=== PATIENT | male | born 1970 | race Caucasian/White ===

== ENCOUNTER 2019-08-05 11:09 | Emergency (ER) | payer BC ==
[~2019-08-05] VITALS: Ht 170.2 cm; Wt 77.3 kg
[2019-08-05 11:14] VITALS: TEMP 97.5
[2019-08-05 13:14] VITALS: BP 130/71; PULSE 73
== END 2019-08-05 13:16 | disposition home or self-care (01) ==
LOC: COL.ER 11:09
DX: S06.9X9A Unspecified intracranial injury with loss of consciousness of unspecified duration, initial encounter (principal); S80.11XA Contusion of right lower leg, initial encounter; R40.2412 Glasgow coma scale score 13-15, at arrival to emergency department; V43.52XA Car driver injured in collision with other type car in traffic accident, initial encounter; Y92.481 Parking lot as the place of occurrence of the external cause

== ENCOUNTER 2020-01-19 14:00 | Outpatient (RCR) | payer OTHER | END 2020-01-20 | disposition home or self-care (01) | LOC: WSST | DX: S06.0X1D Concussion with loss of consciousness of 30 minutes or less, subsequent encounter (principal) ==

== ENCOUNTER 2020-04-19 16:00 | Outpatient (RCR) | payer OTHER | END 2020-05-09 | disposition home or self-care (01) | LOC: WSST | DX: R41.3 Other amnesia (principal); S06.0X1D Concussion with loss of consciousness of 30 minutes or less, subsequent encounter; X58.XXXD Exposure to other specified factors, subsequent encounter ==